=== PATIENT | female | born 1940 | race Caucasian/White ===

== ENCOUNTER 2021-02-21 02:08 | Inpatient (IN) | payer MEDICARE ==
[2021-02-21] MEDS ORDERED: SODIUM CHLORIDE 0.9% 500 ML 500 ML IV STA (02:14)
[2021-02-21] MEDS ORDERED: SODIUM CHLORIDE 0.9% 1,000 ML IV STA (02:14)
[2021-02-21] MEDS ORDERED: ONDANSETRON 4 MG/2 ML VIAL IVP STA (02:14)
--- NOTE | 2021-02-21 02:16 | ED ---
Weakness HPI - General Stated complaint: Weakness, Diarrhea Time Seen by Provider: 02/21/21 02:13 Source: RN notes reviewed, old records reviewed Limitations: no limitations - History of Present Illness Initial comments: Us is an 80-year-old female to the ER for evaluation today. Patient coming in for abdominal pain with nausea vomiting and diarrhea. MD Complaint: generalized weakness, lack of energy -: days(s) Location: generalized Severity: moderate Severity scale (1-10): 4 Consistency: constant Improves with: none Worsens with: none Context: recent illness, history of similar Associated Symptoms: loss of appetite, shortness of breath - Related Data Allergies Allergy/AdvReac Type Severity Reaction Status Date / Time No Known Allergies Allergy Verified 02/21/21 02:48 Review of Systems ROS Statement: Those systems with pertinent positive or pertinent negative responses have been documented in the HPI. ROS Other: All systems not noted in ROS Statement are negative. General Exam General appearance: alert, in no apparent distress Head exam: Present: atraumatic, normocephalic, normal inspection Eye exam: Present: normal appearance, PERRL, EOMI. Absent: scleral icterus, conjunctival injection, periorbital swelling ENT exam: Present: normal exam, mucous membranes moist Neck exam: Present: normal inspection. Absent: tenderness, meningismus, lymphadenopathy Respiratory exam: Present: normal lung sounds bilaterally. Absent: respiratory distress, wheezes, rales, rhonchi, stridor Cardiovascular Exam: Present: regular rate, normal rhythm, normal heart sounds. Absent: systolic murmur, diastolic murmur, rubs, gallop, clicks GI/Abdominal exam: Present: soft, normal bowel sounds. Absent: distended, tenderness, guarding, rebound, rigid Extremities exam: Present: normal inspection, full ROM, normal capillary refill. Absent: tenderness, pedal edema, joint swelling, calf tenderness Back exam: Present: normal inspection Neurological exam: Present: alert, oriented X3, CN II-XII intact Psychiatric exam: Present: normal affect, normal mood Skin exam: Present: warm, dry, intact, normal color. Absent: rash Course Vital Signs 02/21/21 02:25 Temperature 98.9 F Pulse Rate 75 Respiratory 16 Rate Blood Pressure 100/51 O2 Sat by Pulse 96 Oximetry - Reevaluation(s) Reevaluation #1: 01/08/22 02:50 Record is reviewed Reevaluation #2: 02/21/21 02:50 Transferring paperwork has been reviewed Reevaluation #3: 02/21/21 02:50 Patient informed results and questions answered Medical Decision Making - Medical Decision Making 80 female to the emergency department was accepted in transfer for elevated troponin, patient be admitted for non-ST elevated AR Disposition Clinical Impression: Chest pain, Acute non-ST elevation myocardial infarction (NSTEMI) Disposition: ADMITTED IP TO THIS [facility] Condition: Serious Is patient prescribed a controlled substance at d/c from ED?: No Referrals: Vlad Thorpe MD [Primary Care Provider] - 1-2 days
[2021-02-21] MEDS ORDERED: NALOXONE 0.4 MG/ML 1 ML VIAL IV PRN (02:48)
[2021-02-21] MEDS ORDERED: MORPHINE SULFATE 4 MG/ML SYRINGE IV PRN (02:48)
[2021-02-21] MEDS ORDERED: ONDANSETRON 4 MG/2 ML VIAL IVP PRN (02:48)
[2021-02-21] MEDS: SODIUM CHLORIDE 0.9% 1,000 ML IV SCH ×2 (03:00→13:05)
--- NOTE | 2021-02-21 05:20 | P.HPIM ---
History of Present Illness H&P Date: 02/21/21 Chief Complaint: Elevated troponins 80-year-old female with no significant past medical history Patient comes into the hospital as a transfer from [facility] due to elevated troponins for cardiology evaluation. Patient reports 2 week history of off-and-on diarrhea however over the past couple days she's been noticing fatigue and decreased energy level with worsening diarrhea. She denies any GI bleeding denies any recent travel denies any sick contact she's been hospitalized in the ER about 2 weeks ago when the diarrhea started because she was dehydrated and received some IV fluids. She does admit to decreased by mouth intake however she denies any chest pain or trouble breathing denies any nausea vomiting denies any dizziness lightheadedness. Denies any shortness of breath or any profuse sweating episodes. She claims that she is at really good level of health doesn't taking medications at home however recently she got sick with diarrhea and she was told that she had "head" flu but she denies any upper respiratory infection symptoms Patient denies any episodes of falling, patient denies any cardiac history. Reviewing transfer papers, she had elevated troponins at 0.08, and reported to the ED doctor that a follow-up was elevated even more to 0.18. She tested negative for Covid and influenza Hemoglobin was low at 10.3, lactic acid was elevated at 3. Rest of the electrolytes and renal function were unremarkable Review of Systems Pertinent positives as noted in HPI. All other systems were reviewed and are negative Past Medical History Past Medical History: No Reported History History of Any Multi-Drug Resistant Organisms: None Reported Past Surgical History: No Surgical Hx Reported Past Psychological History: No Psychological Hx Reported Smoking Status: Never smoker Past Alcohol Use History: None Reported Past Drug Use History: None Reported - Past Family History Family Family Medical History: No Reported History Medications and Allergies Allergies Allergy/AdvReac Type Severity Reaction Status Date / Time No Known Allergies Allergy Verified 02/21/21 02:48 Physical Exam Vitals: Vital Signs Temp Pulse Resp BP Pulse Ox 02/21/21 02:25 98.9 F 75 16 100/51 96 Intake and Output 02/20/21 02/20/21 02/21/21 14:59 22:59 06:59 Other: Weight 49.895 kg Constitutional: No acute distress, conversant, pleasant Eyes: Anicteric sclerae, moist conjunctiva, Pupils equal round reactive to light ENMT: NC/AT Oropharynx clear, no erythema, or exudates Neck: Supple, no masses, or JVD No carotid bruits No thyromegaly Lungs: Clear to auscultation Clear to percussion Normal respiratory effort, no accessory muscle use Cardiovascular: Heart regular in rate and rhythm, No murmurs, gallops, or rubs No peripheral edema Abdominal: Soft Nontender, no guarding, rebound or rigidity Abdomen moving with respiration Normoactive bowel sounds No hepatomegaly, No splenomegaly No palpable mass No abdominal wall hernia noted Skin: Normal temperature, tone, texture, turgor No induration No subcutaneous nodules No rash, lesions No ulcers Extremities: No digital cyanosis No clubbing Pedal pulses intact and symmetrical Radial pulses intact and symmetrical No calf tenderness Psychiatric: Alert and oriented to person, place Appropriate affect fair judgement Neuro Muscles Strength 4/5 in all 4 extremities Sensation to light touch grossly present throughout Cranial nerves II-XII grossly intact Lymphatics: no palpable cervical or supraclavicular , or inguinal lymph nodes Assessment and Plan Assessment: Generalized weakness and fatigue Elevated troponins, rule out ACS Acute gastroenteritis with dehydration and lactic acidosis Plan Trend troponins Aspirin and statin Cardiology evaluation athletic monitor Monitor vital signs Aggressive IV fluid hydration with normal saline 1 L bolus followed by maintenance fluid at 1 30 mL/h Follow-up lactic acid Follow-up renal function Anemia unknown chronicity Patient denies bleeding Monitor hemoglobin Fall precautions DVT to prophylaxis heparin subcu 3 times a day Full code Anticipated length of stay less than 2 midnights
[2021-02-21] MEDS: HEPARIN SODIUM,PORCINE/PF 5,000 UNIT/0.5 ML SYRINGE SQ SCH ×2 (08:58→15:08)
[2021-02-21] MEDS: ASPIRIN 325 MG TAB PO SCH (08:58)
--- NOTE | 2021-02-21 10:58 | ECHOF ---
Referral Reason:LVF MEASUREMENTS -------- HEIGHT: 157.5 cm WEIGHT: 49.9 kg BP: RVIDd: 1.6 cm (< 3.3) IVSd: 1.1 cm (0.6 - 1.1) LVIDd: 3.7 cm (3.9 - 5.3) LVPWd: 1.2 cm (0.6 - 1.1) IVSs: 1.6 cm LVIDs: 1.8 cm LVPWs: 1.8 cm LAESV Index (A-L): 20.96 ml/m Ao Diam: 2.8 cm (2.0 - 3.7) AV Cusp: 1.7 cm (1.5 - 2.6) LA Diam: 3.3 cm (2.7 - 3.8) MV EXCURSION: 16.312 mm (> 18.000) MV EF SLOPE: 44 mm/s (70 - 150) EPSS: 1.1 cm MV E Francisco: 1.01 m/s MV DecT: 217 ms MV A Francisco: 1.06 m/s MV E/A Ratio: 0.96 AR PHT: 292 ms RAP: 20.00 mmHg RVSP: 29.73 mmHg FINDINGS -------- This was a technically good study. The left ventricular size is normal. Left ventricular wall thickness is normal. Overall left vent ricular systolic function is normal with, an EF between 55 - 60 %. Normal LAP Grade 1 Diastolic Dys function. The right ventricle is normal in size. The left atrial size is normal. Normal LA size by volume 22+/-6 ml/m2. The right atrial size is normal. Aortic valve is trileaflet and is mildly thickened. There is mild aortic regurgitation. The mitral valve is normal. Mild mitral annular calcification present. Mild mitral regurgitation is present. The tricuspid valve appears structurally normal. Mild tricuspid regurgitation present. Right vent ricular systolic pressure is normal at < 35 mmHg. There is no pulmonic regurgitation present. The aortic root size is normal. The inferior vena cava is dilated with no significant inspiratory collapse which is consistent estima marcelle right atrial pressure of >20 mmHg. There is no pericardial effusion. CONCLUSIONS -------- 1. The left ventricular size is normal. 2. Left ventricular wall thickness is normal. 3. Overall left ventricular systolic function is normal with, an EF between 55 - 60 %. 4. Normal LAP Grade 1 Diastolic Dysfunction. 5. Aortic valve is trileaflet and is mildly thickened. 6. There is mild aortic regurgitation. 7. Mild mitral annular calcification present. 8. Mild mitral regurgitation is present. 9. Mild tricuspid regurgitation present. 10. The inferior vena cava is dilated with no significant inspiratory collapse which is consistent es timated right atrial pressure of >20 mmHg. 11. There is no pericardial effusion. POWERHOUSE ENGINEER: Maria Victoria Milton RDCS
--- NOTE | 2021-02-21 12:39 | P.PN ---
Progress Note - Text Progress Note Date: 02/21/21 Seen and examined, IV fluids were not hooked to patient, asked RN to start NS 75cc/hr. Follow in am.
--- NOTE | 2021-02-21 16:43 | P.CRDCN ---
History of Present Illness History of present illness: HISTORY OF PRESENTING ILLNESS Patient is a pleasant 80-year-old female with history of recent pneumonia January 28, diarrhea since that time, undiagnosed depression until recently, hypertension who presents as a transfer from [facility]. Patient apparently had been in her normal state of health around [facility] and then developed was called pneumonia back in January 28. She apparently was placed on brief antibiotics and since that time has been having diarrhea. She also is complaining of upset stomach, decreased oral intake secondary to getting nauseous with any oral intake as well as diarrhea however this only occurs once in the morning and then usually improves. She also has been feeling lightheaded and dizzy and she did have ear wax removed in the emergency department. She also had been following with her primary care physician with some of the symptoms of generalized fatigue attributed to depression and therefore was started on Zoloft approximately a week ago. If anything her symptoms have somewhat worsened since starting Zoloft. She denies any specific chest pain, pressure however does have epigastric discomfort. She was found to have minimally elevated troponin and therefore transferred to [facility]. EKG shows normal sinus rhythm, right bundle branch block, no significant ST or T-wave abnormalities. Blood work shows troponin 0.14, lactic acid initially 3 improved to 1.1, white blood cell count 10.7, hemoglobin 10.3, platelets 250, C. diff was ordered however unable to obtain sample, influenza A, B and COVID-19 negative, BUN 25, creatinine 1, sodium 136, potassium 3.1, albumin 3.2, AST 44, ALP 32, total bilirubin 0.5, chest x-ray showed no acute process. REVIEW OF SYSTEMS At the time of my exam: CONSTITUTIONAL: Denies fever or chills. CARDIOVASCULAR: Denies chest pain, shortness of breath, orthopnea, PND or palpitations. RESPIRATORY: Denies cough. GASTROINTESTINAL: +abdominal pain, +diarrhea, no constipation, +nausea no vomiting. MUSCULOSKELETAL: Denies myalgias. NEUROLOGIC: Denies numbness, tingling or weakness. ENDOCRINE: Denies fatigue, weight change, polydipsia or polyurina. GENITOURINARY: Denies burning, hematuria or urgency with micturation. HEMATOLOGIC: Denies history of anemia or bleeding. PHYSICAL EXAMINATION Vital signs reviewed. CONSTITUTIONAL: No apparent distress. HEENT: Head is normocephalic. Pupils are equal, round. Sclerae anicteric. Mucous membranes of the mouth are moist. No JVD. No carotid bruit. CHEST EXAMINATION: Lungs are clear to auscultation. No chest wall tenderness is noted on palpation or with deep breathing. HEART EXAMINATION: Regular rate and rhythm. S1, S2 heard. No murmurs, gallops or rub. ABDOMEN: Soft, nontender. Positive bowel sounds. EXTREMITIES: 2+ peripheral pulses, no lower extremity edema and no calf tenderness. NEUROLOGIC EXAMINATION: Patient is awake, alert and oriented x3. ASSESSMENT 1. Non-STEMI, suspect type II mechanism related to dehydration, diarrhea, possible viral infection 2. Recent episodes of epigastric pain, nausea and diarrhea worse after antibiotics approximate 3 weeks ago 3. History of hypertension 4. Likely depression recently placed on antidepressants 5. Epigastric pain, not typical of angina, not occurring with any exertion. May be related to peptic ulcer disease 6. Lactic acidosis, improved 7. Mild anemia PLAN Symptoms have been fairly atypical and appear more related to viral etiology with nausea, diarrhea and epigastric pain. Epigastric pain does not appear typical of angina and does not occur with any exertion. Rule out an infectious etiology with recent antibiotic use however does not appear typical of C. diff with rare stools. Her lactic acid has improved and continue with gentle IV fluids. Echocardiogram reviewed with preserved EF. If patient remains here on Tuesday likely perform Lexiscan stress test. Further recommendations to follow. Past Medical History Past Medical History: No Reported History, Deep Vein Thrombosis (DVT) History of Any Multi-Drug Resistant Organisms: None Reported Past Surgical History: Hysterectomy Additional Past Anesthesia/Blood Transfusion Reaction / Comment(s): no hx blood transfusion per patient Past Psychological History: Depression Smoking Status: Never smoker Past Alcohol Use History: None Reported Past Drug Use History: None Reported - Past Family History Family Family Medical History: No Reported History Medications and Allergies Home Medications Medication Instructions Recorded Confirmed Type Atorvastatin Calcium [Lipitor] 20 mg PO DAILY 02/21/21 02/21/21 History Sertraline HCl [Zoloft] 50 mg PO DAILY 02/21/21 02/21/21 History Triamterene/Hydrochlorothiazid 1 tab PO DAILY 02/21/21 02/21/21 History [Triamterene-Hctz 37.5-25 mg Tb] Allergies Allergy/AdvReac Type Severity Reaction Status Date / Time No Known Allergies Allergy Verified 02/21/21 07:40 Physical Exam Vitals: Vital Signs Temp Pulse Pulse Resp BP BP BP 02/21/21 15:06 98.5 F 79 16 94/52 02/21/21 12:00 98.6 F 86 16 96/51 02/21/21 08:31 98.2 F 83 16 96/58 02/21/21 06:24 98.1 F 80 16 140/79 02/21/21 02:25 98.9 F 75 16 100/51 Pulse Ox 02/21/21 15:06 94 L 02/21/21 12:00 95 02/21/21 08:31 95 02/21/21 06:24 98 02/21/21 02:25 96 Intake and Output 02/21/21 02/21/21 02/21/21 06:59 14:59 22:59 Intake Total 530 Balance 530 Intake: IV 30 Invasive Line 1 20 Invasive Line 2 10 Oral 500 Other: # Voids 1 1 # Bowel Movements 1 Weight 49.895 kg 49.895 kg Results Cardiac Enzymes 02/21/21 02/21/21 Range/Units 03:33 08:45 Troponin I 0.087 H* 0.067 H* (0.000-0.034) ng/mL Current Medications Generic Name Dose Route Start Last Admin Trade Name Freq PRN Reason Stop Dose Admin Aspirin 325 mg 02/21/21 09:00 02/21/21 08:58 Aspirin 325 Mg Tab PO 325 mg DAILY MATTHEW Administration Atorvastatin Calcium 40 mg 02/21/21 21:00 Atorvastatin 40 Mg Tab PO HS MATTHEW Heparin Sodium (Porcine) 5,000 unit 02/21/21 08:00 02/21/21 15:08 Heparin Sodium,Porcine/Pf 5,000 Unit/0.5 Ml Syringe SQ 5,000 unit Q8HR MATTHEW Administration Sodium Chloride 1,000 mls @ 20 mls/hr 02/21/21 03:00 02/21/21 03:00 Saline 0.9% IV 20 mls/hr .Q24H MATTHEW Administration Sodium Chloride 1,000 mls @ 70 mls/hr 02/21/21 13:45 02/21/21 13:05 Saline 0.9% IV 70 mls/hr .[id number] MATTHEW Administration Morphine Sulfate 4 mg 02/21/21 02:48 Morphine Sulfate 4 Mg/Ml Syringe IV Q4HR PRN Severe Pain Naloxone HCl 0.2 mg 02/21/21 02:48 Naloxone 0.4 Mg/Ml 1 Ml Vial IV Q2M PRN Opioid Reversal Ondansetron HCl 4 mg 02/21/21 02:48 Ondansetron 4 Mg/2 Ml Vial IVP Q8HR PRN Nausea And Vomiting Intake and Output 02/21/21 02/21/21 02/21/21 06:59 14:59 22:59 Intake Total 530 Balance 530 Intake: IV 30 Invasive Line 1 20 Invasive Line 2 10 Oral 500 Other: # Voids 1 1 # Bowel Movements 1 Weight 49.895 kg 49.895 kg Patient Weight 02/22/21 06:59 Weight 49.895 kg
[2021-02-21] MEDS: PANTOPRAZOLE 40 MG TABLET PO SCH (17:51)
[2021-02-21] MEDS: ATORVASTATIN 40 MG TAB PO SCH (20:38)
[2021-02-22] MEDS: HEPARIN SODIUM,PORCINE/PF 5,000 UNIT/0.5 ML SYRINGE SQ SCH ×4 (01:08→23:27)
[2021-02-22] MEDS: SODIUM CHLORIDE 0.9% 1,000 ML IV SCH ×3 (04:45→12:53)
[2021-02-22] MEDS: PANTOPRAZOLE 40 MG TABLET PO SCH ×2 (06:49→12:52)
[2021-02-22] MEDS ORDERED: ATORVASTATIN 20 MG TAB PO SCH (09:00)
[2021-02-22] MEDS: SERTRALINE 50 MG TAB PO SCH (09:12)
[2021-02-22] MEDS: ASPIRIN 325 MG TAB PO SCH (09:12)
[2021-02-22 10:57] LABS: Basophils % (A) 0 %; Eosinophils # (A) 0.1 k/uL (0-0.7); Eosinophils % (A) 1 %; HGB 9.1 gm/dL (11.4-16.0); Hypochromasia Slight; Lymphocytes # (A) 0.8 k/uL (1.0-4.8); Lymphocytes % (A) 16 %; MCH 28.9 pg (25.0-35.0); MCHC 31.3 g/dL (31.0-37.0); MCV 92.6 fL (80.0-100.0); Mean Platelet Volume 7.2; Monocytes # (A) 0.2 k/uL (0-1.0); Monocytes % (A) 4 %; Neutrophils % (A) 78 %; Platelet Count 291 k/uL (150-450); RBC 3.14 m/uL (3.80-5.40); RDW 13.5 % (11.5-15.5); WBC 5.1 k/uL (3.8-10.6)
[2021-02-22 11:00] LABS: INR 0.9 (<1.2)
[2021-02-22 11:06] LABS: ALT 28 U/L (4-34); AST 34 U/L (14-36); African American GFR (CKD) >90 (>60 ml/min/1.73 sqM); Albumin 2.4 g/dL (3.5-5.0); Alkaline Phosphatase 76 U/L (38-126); Anion Gap 6 mmol/L; Blood Urea Nitrogen 24 mg/dL (7-17); Calcium 8.4 mg/dL (8.4-10.2); Carbon Dioxide 23 mmol/L (22-30); Chloride 107 mmol/L (98-107); Glucose 116 mg/dL (74-99); Magnesium 1.5 mg/dL (1.6-2.3); Non-African American GFR(CKD) 84 (>60 ml/min/1.73 sqM); Potassium 3.6 mmol/L (3.5-5.1); Sodium 136 mmol/L (137-145); Total Bilirubin 0.2 mg/dL (0.2-1.3); Total Protein 5.1 g/dL (6.3-8.2)
--- NOTE | 2021-02-22 12:29 | P.PN ---
Subjective Progress Note Date: 02/22/21 Principal diagnosis: General weakness Patient currently feeling depressed because of having to stay in the hospital. She stated that she can't go home and function by herself, she stated that her daughters are not home to help her. Objective - Vital Signs Vital signs: Vital Signs Temp 98.4 F 02/22/21 11:34 Pulse 70 02/22/21 11:34 Resp 16 02/22/21 11:34 BP 113/53 02/22/21 11:34 Pulse Ox 99 02/22/21 11:34 Intake & Output 02/21/21 02/22/21 02/22/21 18:59 06:59 18:59 Intake Total 530 450 Balance 530 450 Weight 49.895 kg Intake: IV 30 10 Invasive Line 1 20 Invasive Line 2 10 10 Intake, IV Titration 140 Amount Sodium Chloride 0.9% 1, 140 000 ml @ 70 mls/hr IV . [id number] MATTHEW Rx#:[id number] Oral 500 300 Other: # Voids 1 3 # Bowel Movements 1 - Exam Constitutional: No acute distress, conversant, pleasant Eyes:Anicteric sclerae, moist conjunctiva, no lid-lag, PERRLA, ENMT: Oropharynx clear, no erythema, exudates Neck: Supple, FROM, no masses, or JVD, No carotid bruits, No thyromegaly Lungs: Clear to auscultation, Clear to percussion, Normal respiratory effort, no accessory muscle use Cardiovascular: Heart regular in rate and rhythm, No murmurs, gallops, or rubs, No peripheral edema Abdominal: Soft, Nontender, no guarding, rebound or rigidity, Normoactive bowel sounds, No hepatomegaly, No splenomegaly, No palpable mass Skin: Normal temperature, tone, texture, turgor, no induration, No subcutaneous nodules, No rash, lesions, No ulcers Extremities: No digital cyanosis, No clubbing, Pedal pulses intact and symmetrical, Radial pulses intact and symmetrical, No calf tenderness Psychiatric: Alert and oriented to person, place and time, appropriate affect, intact judgement Neuro: Muscles Strength 5/5 in all 4 extremities, Sensation to light touch grossly present throughout, Cranial nerves II-XII grossly intact, no focal sensory deficits - Labs CBC & Chem 7: 02/22/21 10:23 02/22/21 10:23 Labs: Abnormal Lab Results - Last 24 Hours (Table) 02/22/21 02/22/21 Range/Units 10:23 10:23 RBC 3.14 L (3.80-5.40) m/uL Hgb 9.1 L (11.4-16.0) gm/dL Hct 29.0 L (34.0-46.0) % Lymphocytes # 0.8 L (1.0-4.8) k/uL Sodium 136 L (137-145) mmol/L BUN 24 H (7-17) mg/dL Glucose 116 H (74-99) mg/dL Magnesium 1.5 L (1.6-2.3) mg/dL Total Protein 5.1 L (6.3-8.2) g/dL Albumin 2.4 L (3.5-5.0) g/dL Assessment and Plan Plan: Elevated troponin Troponin flat, per cardiology unlikely to have had IN Will need a stress test per cardio Aspirin and statin Generalized weakness and fatigue Acute gastroenteritis with dehydration and lactic acidosis Continue IV fluid hydration Hypomagnesemia Replace Anemia unknown chronicity Patient denies bleeding Monitor hemoglobin Fall precautions DVT to prophylaxis heparin subcu 3 times a day
[2021-02-22] MEDS: IBUPROFEN 200 MG TAB PO PRN (12:48)
[2021-02-22] MEDS: MAGNESIUM SULFATE-D5W PMX 1 GM in DEXTROSE/WATER 1 100ML.BAG IVPB SCH ×2 (12:48→15:01)
--- NOTE | 2021-02-22 15:27 | P.PN ---
Subjective HISTORY OF PRESENTING ILLNESS Patient is a pleasant 80-year-old female with history of recent pneumonia January 28, diarrhea since that time, undiagnosed depression until recently, hypertension who presents as a transfer from [facility]. Patient apparently had been in her normal state of health around [facility] and then developed was called pneumonia back in January 28. She apparently was placed on brief antibiotics and since that time has been having diarrhea. She also is complaining of upset stomach, decreased oral intake secondary to getting nauseous with any oral intake as well as diarrhea however this only occurs once in the morning and then usually improves. She also has been feeling lightheaded and dizzy and she did have ear wax removed in the emergency department. She also had been following with her primary care physician with some of the symptoms of generalized fatigue attributed to depression and therefore was started on Zoloft approximately a week ago. If anything her symptoms have somewhat worsened since starting Zoloft. She denies any specific chest pain, pressure however does have epigastric discomfort. She was found to have minimally elevated troponin and therefore transferred to [facility]. EKG shows normal sinus rhythm, right bundle branch block, no significant ST or T-wave abnormalities. Blood work shows troponin 0.14, lactic acid initially 3 improved to 1.1, white blood cell count 10.7, hemoglobin 10.3, platelets 250, C. diff was ordered however unable to obtain sample, influenza A, B and COVID-19 negative, BUN 25, creatinine 1, sodium 136, potassium 3.1, albumin 3.2, AST 44, ALP 32, total bilirubin 0.5, chest x-ray showed no acute process. 02/22 Patient seen and examined. Patient denies any chest pain or pressure. Denies any shortness breath. She states she feels more energetic today. No further episodes of diarrhea. Troponins have been flat. PHYSICAL EXAMINATION Vital signs reviewed. CONSTITUTIONAL: No apparent distress. HEENT: Head is normocephalic. Pupils are equal, round. Sclerae anicteric. Mucous membranes of the mouth are moist. No JVD. No carotid bruit. CHEST EXAMINATION: Lungs are clear to auscultation. No chest wall tenderness is noted on palpation or with deep breathing. HEART EXAMINATION: Regular rate and rhythm. S1, S2 heard. No murmurs, gallops or rub. ABDOMEN: Soft, nontender. Positive bowel sounds. EXTREMITIES: 2+ peripheral pulses, no lower extremity edema and no calf tenderness. NEUROLOGIC EXAMINATION: Patient is awake, alert and oriented x3. ASSESSMENT 1. Non-STEMI, suspect type II mechanism related to dehydration, diarrhea, possible viral infection 2. Recent episodes of epigastric pain, nausea and diarrhea worse after antibiotics approximate 3 weeks ago 3. History of hypertension 4. Likely depression recently placed on antidepressants 5. Epigastric pain, not typical of angina, not occurring with any exertion. May be related to peptic ulcer disease 6. Lactic acidosis, improved 7. Mild anemia PLAN Symptoms have been fairly atypical and appear more related to viral etiology with nausea, diarrhea and epigastric pain. Echocardiogram reviewed with preserved EF. Discussed options of medical therapy versus stress testing and patient would like stress testing. We will perform Lexiscan stress test tomorrow. Further recommendations to follow. Objective - Vital Signs Vital signs: Vital Signs Temp 98.4 F 02/22/21 11:34 Pulse 70 02/22/21 11:34 Resp 16 02/22/21 11:34 BP 113/53 02/22/21 11:34 Pulse Ox 99 02/22/21 11:34 Intake & Output 02/21/21 02/22/21 02/22/21 18:59 06:59 18:59 Intake Total 530 450 Balance 530 450 Weight 49.895 kg Intake: IV 30 10 Invasive Line 1 20 Invasive Line 2 10 10 Intake, IV Titration 140 Amount Sodium Chloride 0.9% 1, 140 000 ml @ 70 mls/hr IV . [id number] [facility] Rx#:[id number] Oral 500 300 Other: # Voids 1 3 2 # Bowel Movements 1 - Labs CBC & Chem 7: 02/22/21 10:23 02/22/21 10:23 Labs: Abnormal Lab Results - Last 24 Hours (Table) 02/22/21 02/22/21 Range/Units 10:23 10:23 RBC 3.14 L (3.80-5.40) m/uL Hgb 9.1 L (11.4-16.0) gm/dL Hct 29.0 L (34.0-46.0) % Lymphocytes # 0.8 L (1.0-4.8) k/uL Sodium 136 L (137-145) mmol/L BUN 24 H (7-17) mg/dL Glucose 116 H (74-99) mg/dL Magnesium 1.5 L (1.6-2.3) mg/dL Total Protein 5.1 L (6.3-8.2) g/dL Albumin 2.4 L (3.5-5.0) g/dL
[2021-02-22] MEDS: ATORVASTATIN 40 MG TAB PO SCH (20:30)
[2021-02-23] MEDS: SODIUM CHLORIDE 0.9% 1,000 ML IV SCH ×3 (05:57→20:26)
[2021-02-23] MEDS ORDERED: CAFFEINE CITRATE 60 MG/3 ML VIAL IV PRN (06:00)
[2021-02-23] MEDS ORDERED: AMINOPHYLLINE 500 MG/20 ML VIAL IV PRN (06:00)
[2021-02-23] MEDS ORDERED: REGADENOSON 0.4 MG/5 ML SYRINGE IV PRN (06:00)
[2021-02-23] MEDS: PANTOPRAZOLE 40 MG TABLET PO SCH ×2 (06:25→18:10)
--- NOTE | 2021-02-23 10:52 | P.STRESS ---
- Stress Test Note Stress Test Results/Findings: Exam Performed: NM stress lexiscan cardiolite Exam Date: 02/23/21 Reason for Exam: CHEST PAIN Height: 5 ft 2 in Weight: 50.2 kg Protocol: LEXISCAN Stage: NA Duration of Exercise: 5 MINUTES Resting Heart Rate: 76 Resting Blood Pressure: 135/72 Maximum Achieved Heart Rate: 113 Maximum Achieved Blood Pressure: 146/68 85% PMHR: 119 100% PMHR: 140 METS: NA Technologist Comment: Stress Test Results/Findings: This is a 80-year-old female with history of hypertension and hypercholesterolemia being evaluated for symptoms of chest pain. Stress data: Baseline EKG showed a sinus rhythm with evidence of right bundle- branch block pattern with secondary ST-T changes. Blood pressure at rest is 135/72 with pulse rate of 76. A standard dose of Lexiscan was infused. EKGs continued to show right bundle branch block without any significant deviation from baseline. Blood pressure at rest is 135/72 with pulse rate of 76. The peak heart rate was 113 with a blood pressure 146/68. Final impression: #1. Negative Lexiscan stress test #2. Report on the nuclear images to be given by the radiologist.
[2021-02-23 11:48] LABS: Basophils % (A) 0 %; Eosinophils # (A) 0.1 k/uL (0-0.7); Eosinophils % (A) 1 %; HGB 9.6 gm/dL (11.4-16.0); Hypochromasia Slight; Lymphocytes # (A) 0.6 k/uL (1.0-4.8); Lymphocytes % (A) 14 %; MCHC 31.9 g/dL (31.0-37.0); MCV 90.7 fL (80.0-100.0); Mean Platelet Volume 7.5; Monocytes # (A) 0.2 k/uL (0-1.0); Monocytes % (A) 4 %; Neutrophils # (A) 3.7 k/uL (1.3-7.7); Neutrophils % (A) 80 %; Platelet Count 346 k/uL (150-450); RDW 12.9 % (11.5-15.5); WBC 4.6 k/uL (3.8-10.6)
[2021-02-23] MEDS: HEPARIN SODIUM,PORCINE/PF 5,000 UNIT/0.5 ML SYRINGE SQ SCH ×2 (11:52→18:10)
[2021-02-23] MEDS: ASPIRIN 325 MG TAB PO SCH (11:53)
[2021-02-23] MEDS: SERTRALINE 50 MG TAB PO SCH (11:53)
[2021-02-23 12:00] LABS: African American GFR (CKD) >90 (>60 ml/min/1.73 sqM); Anion Gap 4 mmol/L; Blood Urea Nitrogen 16 mg/dL (7-17); Calcium 8.4 mg/dL (8.4-10.2); Carbon Dioxide 26 mmol/L (22-30); Chloride 106 mmol/L (98-107); Glucose 96 mg/dL (74-99); Magnesium 1.6 mg/dL (1.6-2.3); Non-African American GFR(CKD) 83 (>60 ml/min/1.73 sqM); Phosphorus 3.3 mg/dL (2.5-4.5); Potassium 3.1 mmol/L (3.5-5.1); Sodium 136 mmol/L (137-145)
--- NOTE | 2021-02-23 12:11 | NM ---
EXAMINATION TYPE: NM stress lexiscan cardiolite DATE OF EXAM: 02/23/2021 COMPARISON: NONE HISTORY: Chest pain TECHNIQUE: After the intravenous administration of 10.1 mCi Tc 99m Sestamibi - Cardiolite resting SP ECT images acquired 45 minutes post injection. The patient received 0.4mg Lexiscan, 25.0 mCi Tc 99m Sestamibi - Stress images obtained [address] injection FINDINGS: Review of stress and rest SPECT images demonstrates reduced uptake and stress images relative to the rest images some of which could be technical. Could not exclude a small area of stress-induced revers ible ischemia within the apex of the myocardium.. Gated analysis shows normal wall motion with an es timated left ventricular ejection fraction of 68 %. IMPRESSION: 1. Cannot exclude a small area of stress-induced reversible ischemia within the apex of the myocardiu m correlate clinically.
--- NOTE | 2021-02-23 14:07 | P.PN ---
Subjective Patient is a pleasant 80-year-old female with history of recent pneumonia January 28, diarrhea since that time, undiagnosed depression until recently, hypertension who presents as a transfer from [facility]. Patient apparently had been in her normal state of health around [facility] and then developed was called pneumonia back in January 28. She apparently was placed on brief antibiotics and since that time has been having diarrhea. She also is complaining of upset stomach, decreased oral intake secondary to getting nauseous with any oral intake as well as diarrhea however this only occurs once in the morning and then usually improves. She also has been feeling lightheaded and dizzy and she did have ear wax removed in the emergency department. She also had been following with her primary care physician with some of the symptoms of generalized fatigue attributed to depression and therefore was started on Zoloft approximately a week ago. If anything her symptoms have somewhat worsened since starting Zoloft. She denies any specific chest pain, pressure however does have epigastric discomfort. She was found to have minimally elevated troponin and therefore transferred to [facility]. EKG shows normal sinus rhythm, right bundle branch block, no significant ST or T-wave abnormalities. Blood work shows troponin 0.14, 0.08, 0.06 02/23/2021 Patient seen and examined. Patient denies any chest pain or pressure. Denies any shortness breath. Plan for Lexiscan stress test today. Echocardiogram revealed EF 55-60%,no significant wall motion abnormalities. She is currently maintained on aspirin 80 mg daily, atorvastatin 40 mg nightly. PHYSICAL EXAMINATION Vital signs reviewed. CONSTITUTIONAL: No apparent distress. HEENT: Neck Supple. No JVD. CHEST EXAMINATION: Lungs are clear to auscultation. No chest wall tenderness is noted on palpation or with deep breathing. HEART EXAMINATION: Regular rate and rhythm. S1, S2 heard. No murmurs, gallops or rub. ABDOMEN: Soft, nontender. Positive bowel sounds. EXTREMITIES: 2+ peripheral pulses, no lower extremity edema and no calf te nderness. NEUROLOGIC EXAMINATION: Patient is awake, alert and oriented x3. ASSESSMENT 1. Non-STEMI, suspect type II mechanism related to dehydration, diarrhea, possible viral infection 2. Recent episodes of epigastric pain, nausea and diarrhea worse after antibiotics approximate 3 weeks ago 3. History of hypertension 4. Likely depression recently placed on antidepressants 5. Epigastric pain, not typical of angina, not occurring with any exertion. May be related to peptic ulcer disease 6. Lactic acidosis, improved 7. Mild anemia PLAN Symptoms have been fairly atypical and appear more related to viral etiology with nausea, diarrhea and epigastric pain. Echocardiogram reviewed with preserved EF. Discussed options of medical therapy versus stress testing and patient would like stress testing. Plan for Lexiscan stress test today. Further recommendations to follow. Objective - Vital Signs Vital signs: Vital Signs Temp 98.1 F 02/23/21 12:00 Pulse 72 02/23/21 12:00 Resp 18 02/23/21 12:00 BP 120/62 02/23/21 12:00 Pulse Ox 98 02/23/21 12:00 Intake & Output 02/22/21 02/23/21 02/23/21 18:59 06:59 18:59 Intake Total 260 0 Output Total 1100 850 Balance 260 -1100 -850 Weight 50.2 kg Intake: Oral 260 0 Output: Urine 1100 850 Other: # Voids 2 1 - Labs CBC & Chem 7: 02/23/21 11:25 02/23/21 11:25 Labs: Abnormal Lab Results - Last 24 Hours (Table) 02/23/21 02/23/21 Range/Units 11:25 11:25 RBC 3.30 L (3.80-5.40) m/uL Hgb 9.6 L (11.4-16.0) gm/dL Hct 30.0 L (34.0-46.0) % Lymphocytes # 0.6 L (1.0-4.8) k/uL Sodium 136 L (137-145) mmol/L Potassium 3.1 L (3.5-5.1) mmol/L
--- NOTE | 2021-02-23 16:38 | P.PN ---
Subjective Progress Note Date: 02/23/21 Principal diagnosis: COVID-19 pneumonia Patient was examined in consultation and I completely continue some difficulty. She denies any active chest pain, shortness of breath or palpitations. Family members were present at bedside all questions have been answered. Objective - Vital Signs Vital signs: Vital Signs Temp 98.1 F 02/23/21 12:00 Pulse 72 02/23/21 12:00 Resp 18 02/23/21 12:00 BP 120/62 02/23/21 12:00 Pulse Ox 98 02/23/21 12:00 Intake & Output 02/22/21 02/23/21 02/23/21 18:59 06:59 18:59 Intake Total 260 0 Output Total 1100 850 Balance 260 -1100 -850 Weight 50.2 kg Intake: Oral 260 0 Output: Urine 1100 850 Other: # Voids 2 1 - Exam Constitutional: No acute distress, conversant, pleasant Eyes:Anicteric sclerae, moist conjunctiva, no lid-lag, PERRLA, ENMT: Oropharynx clear, no erythema, exudates Neck: Supple, FROM, no masses, or JVD, No carotid bruits, No thyromegaly Lungs: Clear to auscultation, Clear to percussion, Normal respiratory effort, no accessory muscle use Cardiovascular: Heart regular in rate and rhythm, No murmurs, gallops, or rubs, No peripheral edema - Labs CBC & Chem 7: 02/23/21 11:25 02/23/21 11:25 Labs: Abnormal Lab Results - Last 24 Hours (Table) 02/23/21 02/23/21 Range/Units 11:25 11:25 RBC 3.30 L (3.80-5.40) m/uL Hgb 9.6 L (11.4-16.0) gm/dL Hct 30.0 L (34.0-46.0) % Lymphocytes # 0.6 L (1.0-4.8) k/uL Sodium 136 L (137-145) mmol/L Potassium 3.1 L (3.5-5.1) mmol/L Assessment and Plan Plan: Assessment: #1 elevated cardiac troponin secondary to ACS versus demand ischemia #2 generalized weakness and fatigue #3 electrode abnormality #4 COVID-19 Plan: -Maintain oxygen saturations above 92% -Chest x-ray reviewed -Chronic troponins elevated, cardiology on board -Stress test ordered by consulting team -Risk stratified patient with hemoglobin A1c, lipid panel -Due to prophylaxis heparin Disposition anticipate discharge in the next 24 hours once cleared by cardiology team.
[2021-02-23] MEDS ORDERED: Potassium Replacement Protocol 1 EACH MISC MISCELLANE PRN (19:40)
[2021-02-23] MEDS ORDERED: Magnesium Replacement Protocol 1 EACH MISC MISCELLANE PRN (19:41)
[2021-02-23] MEDS: MAGNESIUM SULFATE-D5W PMX 1 GM in DEXTROSE/WATER 1 100ML.BAG IVPB SCH ×2 (20:25→21:46)
[2021-02-23] MEDS: POTASSIUM CHLORIDE ER 20 MEQ TAB.ER PO SCH ×2 (20:25→21:46)
[2021-02-23] MEDS: ATORVASTATIN 40 MG TAB PO SCH (20:25)
[2021-02-24] MEDS: HEPARIN SODIUM,PORCINE/PF 5,000 UNIT/0.5 ML SYRINGE SQ SCH ×3 (00:44→16:37)
[2021-02-24] MEDS: PANTOPRAZOLE 40 MG TABLET PO SCH (07:04)
[2021-02-24 08:20] VITALS: RESP 16
[2021-02-24] MEDS: IBUPROFEN 200 MG TAB PO PRN (08:20)
[2021-02-24] MEDS: SERTRALINE 50 MG TAB PO SCH (08:20)
[2021-02-24 08:42] LABS: HCT 27.8 % (34.0-46.0); HGB 8.9 gm/dL (11.4-16.0); Hypochromasia Slight; MCH 29.2 pg (25.0-35.0); MCV 91.2 fL (80.0-100.0); Mean Platelet Volume 7.6; Platelet Count 358 k/uL (150-450); RBC 3.04 m/uL (3.80-5.40); RDW 12.9 % (11.5-15.5); WBC 5.2 k/uL (3.8-10.6)
[2021-02-24 08:57] LABS: African American GFR (CKD) >90 (>60 ml/min/1.73 sqM); Anion Gap 4 mmol/L; Blood Urea Nitrogen 14 mg/dL (7-17); Calcium 8.1 mg/dL (8.4-10.2); Carbon Dioxide 23 mmol/L (22-30); Chloride 108 mmol/L (98-107); Glucose 92 mg/dL (74-99); Magnesium 1.9 mg/dL (1.6-2.3); Non-African American GFR(CKD) 87 (>60 ml/min/1.73 sqM); Potassium 3.5 mmol/L (3.5-5.1); Sodium 135 mmol/L (137-145)
[2021-02-24] MEDS ORDERED: ASPIRIN 81 MG PO SCH (09:00)
[2021-02-24] MEDS ORDERED: METOPROLOL TARTRATE 25 MG TAB PO SCH (09:00)
--- NOTE | 2021-02-24 11:18 | CDI ---
Documentation Clarification Form Date: 02/24/2021 11:02:40 AM From: Claudette Stapleton RN CCDS Admit Date: 02/21/2021 02:48:00 AM Patient Name: Trinh Middleton Visit Number: [id number] Discharge Date: ATTENTION: The Clinical Documentation Specialists (CDI) and [facility] Coding Staff appreciate your assistance in clarifying documentation. Please respond to the clarification below the line at the bottom and electronically sign. The CDI & [facility] Coding staff will review the response and follow-up if needed. Please note: Queries are made part of the Legal Health Record. If you have any questions, please contact the author of this message via ITS. Dr. Napoleon Gamino MD The COVID-19 test obtained at [facility] 02/21 was reported as Negative. History/risk factors: 80-year-old female presents to [facility] as a transfer from [facility] with elevated troponin levels. The patient has diarrhea, shortness of breath and fatigue. Medical History: None reported. H&P, 02/21. Clinical Indicators: H&P, 02/21: She tested negative for COVID and Influenza. Medicine Progress note, 02/23: COVID - 19 Treatment: 02/21 to current 0.9ns 70cc/hr. Please clarify the COVID-19 status: [ ] False negative, treating for COVID-19 infection [ 1 ] COVID-19 ruled out [ ] Other, please specify (Template Last Revised: April 2020) MTDD
--- NOTE | 2021-02-24 11:47 | CDI ---
Documentation Clarification Form Date: 02/24/2021 11:21:39 AM From: Claudette Stapleton RN CCDS Admit Date: 02/21/2021 02:48:00 AM Patient Name: Trinh Middleton Visit Number: [id number] Discharge Date: ATTENTION: The Clinical Documentation Specialists (CDI) and [facility] Coding Staff appreciate your assistance in clarifying documentation. Please respond to the clarification below the line at the bottom and electronically sign. The CDI & [facility] Coding staff will review the response and follow-up if needed. Please note: Queries are made part of the Legal Health Record. If you have any questions, please contact the author of this message via ITS. Dr. Napoleon Gamino MD NSTEMI is documented 02/21, ED Note. Additional clarification regarding the diagnosis is requested. 80-year-old female presents to [facility] as a transfer from [facility] with elevated troponin levels. The patient has diarrhea, shortness of breath and fatigue. Medical History: None reported. H&P, 02/21. Clinical Indicators: 02/21 thru 02/23, Cardiology documentation: Non-STEMI, suspect type II mechanism related to dehydration, diarrhea, possible viral infection. 02/23, Medicine documentation: Elevated cardiac troponin secondary to ACS versus demand ischemia. Troponin: 02/21- 0.087; 0.067 Stress Test,02/23: Negative Lexiscan stress test #2 Report on the nuclear images to given by the radiologist. NM stress lexiscan cardiolite, 02/23: Cannot exclude a small area of stress- induced reversible ischemia within the apex of the myocardium correlate clinically. Treatment: 02/23 Magnesium sulfate / dextrose 1gm x 2 bags; 02/23 K-Dur 20 20meq P0 Q1HR scheduled x2 doses; 02/24 to current Lopressor 25mg PO BID; 02/23 to current Magnesium 1 each PRN per protocol; 02/21 to current 0.9NS 70cc/hr. Cardiology consult see above. Please clarify which diagnosis is most appropriate: [ ] Non STEMI type 2 CO due to dehydration, diarrhea possible viral infection. [ ] Non STEMI type 1 [ ] Type 2 CO due to other (please specify ) [1 ] Unable to determine [ ] Other Condition, please specify (Template Last Revised: April 2020) MTDD
[2021-02-24 12:35] VITALS: BP 112/54; PULSE 60; TEMP 98.3
--- NOTE | 2021-02-24 12:58 | P.PN ---
Subjective Patient is a pleasant 80-year-old female with history of recent pneumonia January 28, diarrhea since that time, undiagnosed depression until recently, hypertension who presents as a transfer from [facility]. Patient apparently had been in her normal state of health around [facility] and then developed was called pneumonia back in January 28. She apparently was placed on brief antibiotics and since that time has been having diarrhea. She also is complaining of upset stomach, decreased oral intake secondary to getting nauseous with any oral intake as well as diarrhea however this only occurs once in the morning and then usually improves. She also has been feeling lightheaded and dizzy and she did have ear wax removed in the emergency department. She also had been following with her primary care physician with some of the symptoms of generalized fatigue attributed to depression and therefore was started on Zoloft approximately a week ago. If anything her symptoms have somewhat worsened since starting Zoloft. She denies any specific chest pain, pressure however does have epigastric discomfort. She was found to have minimally elevated troponin and therefore transferred to [facility]. EKG shows normal sinus rhythm, right bundle branch block, no significant ST or T-wave abnormalities. Blood work shows troponin 0.14, 0.08, 0.06 02/24/2021 Patient seen and examined. Patient denies any chest pain or pressure. Denies any shortness breath. Echocardiogram revealed EF 55-60%,no significant wall motion abnormalities. Patient's Lexiscan stress test revealed cannot exclude a small area of stress induced reversible ischemia in the apex of the myocardium, correlate clinically. Patient requesting medical therapy at this time. She is currently maintained on aspirin 80 mg daily, atorvastatin 40 mg nightly, metoprolol titrate 25 mg twice a day. Blood pressure 112/54, heart rate 60, afebrile, oxygen saturations greater than 92% on room air. Labs reviewed. PHYSICAL EXAMINATION Vital signs reviewed. CONSTITUTIONAL: No apparent distress. HEENT: Neck Supple. No JVD. CHEST EXAMINATION: Lungs are clear to auscultation. No chest wall tenderness is noted on palpation or with deep breathing. HEART EXAMINATION: Regular rate and rhythm. S1, S2 heard. No murmurs, gallops or rub. ABDOMEN: Soft, nontender. Positive bowel sounds. EXTREMITIES: 2+ peripheral pulses, no lower extremity edema and no calf tenderness. NEUROLOGIC EXAMINATION: Patient is awake, alert and oriented x3. ASSESSMENT 1. Non-STEMI, suspect type II mechanism related to dehydration, diarrhea, possible viral infection 2. Recent episodes of epigastric pain, nausea and diarrhea worse after antibiotics approximate 3 weeks ago 3. History of hypertension 4. Likely depression recently placed on antidepressants 5. Epigastric pain, not typical of angina, not occurring with any exertion. May be related to peptic ulcer disease 6. Lactic acidosis, improved 7. Mild anemia PLAN -Symptoms have been fairly atypical and appear more related to viral etiology with nausea, diarrhea and epigastric pain. -Echocardiogram reviewed with preserved EF. -Spoke with patient at length, in regards to her stress test, echocardiogram. Explained cardiac catheterization and alternative therapies including medical therapy with the patient. Patient states that at this time, she would like to continue medical therapy and does not want undergo cardiac catheterization at this time. We will maximize medical therapy. -Recommend patient follow up with Dr. Guerra in 1-2 weeks for further man agement. Patient stable from cardiology perspective. We'll follow the patient as needed. Objective - Vital Signs Vital signs: Vital Signs Temp 98.3 F 02/24/21 12:05 Pulse 60 02/24/21 12:05 Resp 16 02/24/21 12:05 BP 112/54 02/24/21 12:05 Pulse Ox 96 02/24/21 12:05 Intake & Output 02/23/21 02/24/21 02/24/21 18:59 06:59 18:59 Intake Total 450 Output Total 850 400 450 Balance -850 50 -450 Weight 50.2 kg 52.3 kg Intake: Intake, IV Titration 210 Amount Sodium Chloride 0.9% 1, 210 000 ml @ 70 mls/hr IV . [id number] Rx#:[id number] Oral 240 Output: Urine 850 400 450 - Labs CBC & Chem 7: 02/24/21 08:04 02/24/21 08:04 Labs: Abnormal Lab Results - Last 24 Hours (Table) 02/24/21 02/24/21 Range/Units 08:04 08:04 RBC 3.04 L (3.80-5.40) m/uL Hgb 8.9 L (11.4-16.0) gm/dL Hct 27.8 L (34.0-46.0) % Sodium 135 L (137-145) mmol/L Chloride 108 H (98-107) mmol/L Calcium 8.1 L (8.4-10.2) mg/dL
[2021-02-24 13:04] VITALS: BMI 20.2
--- NOTE | 2021-02-24 14:53 | P.DS ---
Providers Date of admission: 02/21/21 02:48 Expected date of discharge: 02/24/21 Attending physician: Mitra Horton MD Consults: 02/21/21 02:48 Consult Physician Routine Consulting Provider: Gary Hernandez Consult Reason/Comments: nstemi Do you want consulting provider notified?: Yes Primary care physician: [facility] Course: 80-year-old female with no significant past medical history Patient comes into the hospital as a transfer from [facility] due to elevated troponins for cardiology evaluation. Patient reports 2 week history of off-and-on diarrhea however over the past couple days she's been noticing fatigue and decreased energy level with worsening diarrhea. She denies any GI bleeding denies any recent travel denies any sick contact she's been hospitalized in the ER about 2 weeks ago when the diarrhea started because she was dehydrated and received some IV fluids. She does admit to decreased by mouth intake however she denies any chest pain or trouble breathing denies any nausea vomiting denies any dizziness lightheadedness. Denies any shortness of breath or any profuse sweating episodes. She claims that she is at really good level of health doesn't taking medications at home however recently she got sick with diarrhea and she was told that she had "head" flu but she denies any upper respiratory infection symptoms Patient denies any episodes of falling, patient denies any cardiac history. Reviewing transfer papers, she had elevated troponins at 0.08, and reported to the ED doctor that a follow-up was elevated even more to 0.18. She tested negative for Covid and influenza Hemoglobin was low at 10.3, lactic acid was elevated at 3. Rest of the electrolytes and renal function were unremarkable. Patient was evaluated by cardiology team today not complaining of any shortness of breath, chest or palpitations. Stress test was completed which did show some reversible changes. Patient was evaluated again by their team and deemed not to perform a cardiac catheterization at this time. Patient is asked to follow up with her medicare sales representative and PCP within 1 week of discharge. Visual be optimized with her medical regimen prior to discharge. I did discuss the findings with her daughter regarding her hospital course stress test finding and final Marv by the consulting team. She is agreeable. Patient was also interested in getting physical therapy reviewed PT/OT notes at this time the team she's not a candidate for subacute rehab. Assessment: Constitutional: No acute distress, conversant, pleasant Eyes: Anicteric sclerae, moist conjunctiva, Pupils equal round reactive to light ENMT: NC/AT Oropharynx clear, no erythema, or exudates Neck: Supple, no masses, or JVD No carotid bruits No thyromegaly Lungs: Clear to auscultation Clear to percussion Normal respiratory effort, no accessory muscle use Cardiovascular: Heart regular in rate and rhythm, No murmurs, gallops, or rubs No peripheral edema Patient Condition at Discharge: Stable Plan - Discharge Summary Discharge Rx Participant: Yes New Discharge Prescriptions: New Atorvastatin [Lipitor] 40 mg PO HS 30 Days #30 tab Metoprolol Tartrate [Lopressor] 25 mg PO BID 30 Days #60 tab Pantoprazole [Protonix] 40 mg PO DAILY 30 Days #30 tab Aspirin 81 mg PO DAILY 30 Days #30 tab Continue Sertraline HCl [Zoloft] 50 mg PO DAILY Discontinued Triamterene/Hydrochlorothiazid [Triamterene-Hctz 37.5-25 mg Tb] 1 tab PO DAILY Atorvastatin Calcium [Lipitor] 20 mg PO DAILY Discharge Medication List Sertraline HCl [Zoloft] 50 mg PO DAILY 02/21/21 [History] Aspirin 81 mg PO DAILY 30 Days #30 tab 02/24/21 [Rx] Atorvastatin [Lipitor] 40 mg PO HS 30 Days #30 tab 02/24/21 [Rx] Metoprolol Tartrate [Lopressor] 25 mg PO BID 30 Days #60 tab 02/24/21 [Rx] Pantoprazole [Protonix] 40 mg PO DAILY 30 Days #30 tab 02/24/21 [Rx] Follow up Appointment(s)/Referral(s): Stiven Guerra DO [STAFF PHYSICIAN] - 2 Weeks Vlad Thorpe MD [Primary Care Provider] - 1-2 days Discharge Disposition: HOME WITH HOME HEALTH SERVICES
[2021-02-24] MEDS: SODIUM CHLORIDE 0.9% 1,000 ML IV SCH (16:37)
== END 2021-02-24 18:29 | disposition home health service (06) | DRG 392 ==
LOC: EC 02:08 → 3SCARD 02:48
PROVIDERS: ADMIT Internal Medicine; ATTEND Internal Medicine
DX: A08.4 Viral intestinal infection, unspecified (principal); E87.2 Acidosis; K52.9 Noninfective gastroenteritis and colitis, unspecified; E83.42 Hypomagnesemia; E86.0 Dehydration; F32.A Depression, unspecified; D64.9 Anemia, unspecified; I10 Essential (primary) hypertension; I45.10 Unspecified right bundle-branch block; Z79.82 Long term (current) use of aspirin; Z79.899 Other long term (current) drug therapy; Z87.01 Personal history of pneumonia (recurrent); Z90.710 Acquired absence of both cervix and uterus; Z20.822 Contact with and (suspected) exposure to COVID-19
CPT/HCPCS: 78452; 80048; 80053; 83735; 84100; 84484; 85025; 85027; 85610; 93017; 93306; 99285